=== PATIENT | female | born 1995 | race American Indian/Alaskan Native ===

== ENCOUNTER 2020-11-10 19:47 | Inpatient (IN) | payer MEDICAID ==
[2020-11-10] MEDS ORDERED: LIDOCAINE (2%) 20 MG/1 ML VIAL 20 ML MDV INFILTRATI ONE (22:58)
[2020-11-10] MEDS ORDERED: miSOPROStol 200 MCG TAB VG ONE (22:58)
[2020-11-10] MEDS ORDERED: TERBUTALINE 1 MG/1 ML INJ SUB-Q PRN (22:58)
[2020-11-10] MEDS ORDERED: ePHEDrine SULFATE 50 MG/1 ML INJ IV PRN (22:58)
[2020-11-10] MEDS ORDERED: MINERAL OIL 30 ML ORAL LIQD PO PRN (22:58)
[2020-11-10] MEDS ORDERED: LACTATED RINGERS 1,000 ML IV SCH (23:00)
[2020-11-10] MEDS ORDERED: OXYTOCIN DRIP 30 UNITS/500 ML BAG IV SCH (23:00)
[2020-11-10 23:54] LABS: Hematocrit 32.9 % (30.3-42.9); Hemoglobin 10.5 gm/dl (10.1-14.3); Mean Corpuscular HGB Conc 32 % (30-34); Mean Corpuscular Volume 72 fl (79-97); Platelet Count 201 K/mm3 (140-440); Red Blood Count 4.54 M/mm3 (3.65-5.03); Red Cell Distribution Width 17.3 % (13.2-15.2)
[2020-11-11] MEDS ORDERED: diphenhydrAMINE 25 MG CAP PO ONE (00:16)
[2020-11-11] MEDS ORDERED: HYDROCORTISONE 1% CREAM 28.4GM TP ONE (00:17)
[2020-11-11] MEDS ORDERED: HYDROmorphone 2 MG/1 ML INJ IV PRN (00:55)
[2020-11-11] MEDS ORDERED: HYDROmorphone 1 MG/1 ML INJ ONE (01:11)
--- NOTE | 2020-11-11 01:28 | Ultrasound Report ---
Limited obstetrical ultrasound INDICATION: 17 week 1 day , fluid evaluation COMPARISON: None FINDINGS: A single intrauterine is noted with a well-formed fetus seen in breech position. Anterior placenta is free of the internal cervical os. No amniotic fluid is identified. No card iac activity can be detected. IMPRESSION: demise Signer Name: Leopoldo Longo MD Signed: 11/11/2020 1:23 AM Workstation Name: [id number]
[2020-11-11] MEDS ORDERED: miSOPROStol 100 MCG TAB ONE (04:40)
--- NOTE | 2020-11-11 07:46 | History and Physical Report ---
History of Present Illness Date of examination: 11/11/20 Date of admission: 11/10/20 19:47 Past History - Obstetrical History Expected Date of Delivery: 04/19/21 Actual Gestation: 17 Week(s) 3 Day(s) : 3 Medications and Allergies Allergies Allergy/AdvReac Type Severity Reaction Status Date / Time cephalexin [From Keflex] AdvReac Itching Verified 11/10/20 20:21 Latex, Natural Rubber AdvReac Itching Verified 11/10/20 20:21 Home Medications Medication Instructions Recorded Confirmed Last Taken Type Ibuprofen [Motrin] 600 mg PO Q8H PRN #60 tablet 11/11/20 Unknown Rx Active Meds: Active Medications Ephedrine Sulfate (Ephedrine Sulfate 50 Mg/1 Ml Inj) 10 mg IV Q2M PRN PRN Reason: Hypotension Hydromorphone HCl (Hydromorphone 2 Mg/1 Ml Inj) 2 mg IV Q3H PRN PRN Reason: Labor Pain Last Admin: 11/11/20 04:59 Dose: 2 mg Documented by: Lactated Ringer's (Lactated Ringers) 1,000 mls @ 125 mls/hr IV DIRECT [facility]ERO Oxytocin/Sodium Chloride (Pitocin/Ns 30 Unit/500ml) 30 units in 500 mls @ 40 mls/hr IV TITR OMERO; Protocol Labetalol HCl (Labetalol 100 Mg Tab) 100 mg PO BID OMERO Mineral Oil (Mineral Oil 30 Ml Oral Liqd) 30 ml PO QHS PRN PRN Reason: Constipation Terbutaline Sulfate (Terbutaline 1 Mg/1 Ml Inj) 0.25 mg SUB-Q ONCE PRN PRN Reason: Hyperstimulation/Hypertonicity - Vital Signs Vital signs: Vital Signs Temp Pulse Resp BP 99.1 F 83 18 137/75 11/10/20 20:14 11/10/20 20:14 11/10/20 20:14 11/10/20 20:14 Temp Pulse Resp BP Pulse Ox 99.1 F 82 18 150/90 11/10/20 20:14 11/11/20 07:39 11/11/20 04:59 11/11/20 07:39 Results Result Diagrams: 11/10/20 23:24 Abnormal lab results 11/10/20 Range/Units 23:24 WBC 12.1 H (4.5-11.0) K/mm3 MCV 72 L (79-97) fl MCH 23 L (28-32) pg RDW 17.3 H (13.2-15.2) % All other labs normal. Assessment and Plan admit cytotec expect pain meds balaji Aguilar MD
--- NOTE | 2020-11-11 07:48 | Procedure Note ---
OB Delivery Note - Delivery Date of Delivery: 11/11/20 Estimated blood loss: <100cc - Vaginal Intrapartum events: other(please specify) (IUFD at 17 weeks) Delivery induction: misoprostol Delivery monitor: none Route of delivery: Delivery comments: Delivery of ~17 weeks fetus and placenta without complications prior to my arrival. no lacerations placenta intact fundus firm, good hemostasis mom and FOB show appropriate grief reaction to rx ibuprofen in chart CAkanksha Aguilar MD
[2020-11-11] MEDS ORDERED: PROMETHAZINE 25 MG TAB PO PRN (08:00)
[2020-11-11] MEDS ORDERED: diphenhydrAMINE 25 MG CAP PO PRN (08:00)
[2020-11-11] MEDS ORDERED: WITCH HAZEL/ GLYCERIN PAD TP PRN (08:00)
[2020-11-11] MEDS ORDERED: ONDANSETRON 4 MG/2 ML INJ IV PRN (08:00)
[2020-11-11] MEDS ORDERED: LANOLIN/ZINC/DIMETHICONE (LANSINOH) 7 GM TP PRN (08:00)
[2020-11-11] MEDS ORDERED: PROMETHAZINE 25 MG RECT SUPP PR PRN (08:00)
[2020-11-11] MEDS: IBUPROFEN 600 MG TAB PO SCH ×3 (08:18→23:49)
[2020-11-11] MEDS ORDERED: medroxyPROGESTERone ACETATE 150 MG/ML SYRINGE IM SCH (10:00)
[2020-11-11] MEDS: oxyCODONE /ACETAMINOPHEN 5-325MG TAB PO PRN ×2 (18:26→23:48)
[2020-11-11] MEDS ORDERED: MAGNESIUM HYDROXIDE (MOM) ORAL LIQD UDC PO PRN (22:00)
--- NOTE | 2020-11-12 11:56 | Discharge Summary ---
Providers - Providers Date of Admission: 11/10/20 19:47 Date of discharge: 11/12/20 Attending physician: VY CASAREZ Primary care physician: VY CASAREZ Hospitalization Reason for admission: IUFD (@ 17 weeks gestation) Delivery: Episiotomy: none Laceration: none Other procedures: none complications: none Discharge diagnosis: intrapartum demise Hospital course: See admission H & P; OB delivery summary and PP progress notes Condition at discharge: Stable Disposition: [id number] TO HOME OR SELFCARE - Discharge Diagnoses (1) IUFD at less than 20 weeks of gestation Status: Acute (2) Elevated blood pressure affecting in second trimester, antepartum Status: Acute (3) Anemia Status: Acute Qualifiers: Anemia type: iron deficiency Comment: Asymptomatic Plan - Discharge Medications Prescriptions: labetaloL [Labetalol 200mg TAB] 200 mg PO BID 14 Days #42 tablet Ibuprofen [Motrin] 600 mg PO Q8H PRN #60 tablet PRN Reason: Pain - Provider Discharge Summary Activity: routine, no sex for 6 weeks, no heavy lifting 4 weeks, no strenuous exercise Diet: other (Iron rich diet) Instructions: routine Additional instructions: [] Smoking cessation referral if applicable(refer to patient education folder for contact #) [] Refer to [facility]'s [facility] Booklet Call your doctor immediately for: * Fever > 100.5 * Heavy vaginal bleeding ( >1 pad per hour) * Severe persistent headache * Shortness of breath * Reddened, hot, painful area to leg or breast * Follow up in office in 7 days for B/P check - Follow up plan Follow up: VY CASAREZ MD [Primary Care Provider] - 7 Days Forms: [facility] Discharge Summary, Discharge Signature Page
[2020-11-12 12:55] VITALS: BP 136/81
== END 2020-11-12 12:20 | disposition home or self-care (01) | DRG 779 ==
LOC: LD 19:47 → OB 11-11 09:13
PROVIDERS: ADMIT Obstetrics & Gynecology; ATTEND Obstetrics & Gynecology
PROC: 10E0XZZ Delivery of Products of Conception, External Approach (ICD-10-PCS; principal; 2020-11-11)
PROC: 3E0P7GC Introduction of Other Therapeutic Substance into Female Reproductive, Via Natural or Artificial Opening (ICD-10-PCS; 2020-11-11)
DX: O02.1 Missed abortion (principal); D50.9 Iron deficiency anemia, unspecified; R03.0 Elevated blood-pressure reading, without diagnosis of hypertension
CPT/HCPCS: 36415; 76815; 85027; 86850; 86900; 86901; G0378; A6250; J1170; U0003